=== PATIENT | male | born 1940 | race Hispanic/Latino ===

== ENCOUNTER 2019-04-22 09:20 | Day surgery (SDC) | payer OTHER, MEDICARE ==
[~2019-04-22] VITALS: Ht 181.6 cm; Wt 78.9 kg
[~2019-04-22 09:20] MED LIST: SODIUM CHLORIDE 0.9% 1000ML 1,000 ML IV ONE
[2019-04-22 10:18] VITALS: BP 151/77
[2019-04-22] MEDS ORDERED: PROPOFOL 10 MG/ML 20ML VIAL IV ONE (11:49)
[2019-04-22 12:09] VITALS: BP 93/51
[2019-04-22 12:13] VITALS: BP 101/60
[2019-04-22 12:18] VITALS: BP 101/66
[2019-04-22 12:23] VITALS: BP 104/60
== END 2019-04-22 12:37 | disposition home or self-care (01) ==
LOC: DAH 09:20 → ENDO 09:20
PROVIDERS: ATTEND Internal Medicine
DX: C15.5 Malignant neoplasm of lower third of esophagus (principal); K31.89 Other diseases of stomach and duodenum; K29.70 Gastritis, unspecified, without bleeding; I10 Essential (primary) hypertension; D64.9 Anemia, unspecified; B96.81 Helicobacter pylori [H. pylori] as the cause of diseases classified elsewhere; Z79.899 Other long term (current) drug therapy; Z98.890 Other specified postprocedural states
CPT/HCPCS: 43239; 88305; 93005; A4606; J2704; J7030

== ENCOUNTER 2019-05-14 06:59 | Day surgery (SDC) | payer OTHER, MEDICARE ==
[~2019-05-14] VITALS: Ht 181.6 cm; Wt 79.8 kg
[2019-05-14 08:19] LABS: BASOPHILS % (AUTO) 0.5 % (0.0-5.0); EOSINOPHILS % (AUTO) 2.7 % (0.0-8.0); HEMATOCRIT 33.7 % (42-54); LYMPHOCYTES % (AUTO) 17.3 % (21.0-51.0); MEAN CORPUSCULAR HEMOGLOBIN 31.9 pg (27.0-33.0); MEAN CORPUSCULAR HGB CONC 33.4 g/dL (32.0-36.0); MEAN CORPUSCULAR VOLUME 95.6 fL (79-99); MONOCYTES % (AUTO) 10.8 % (3.0-13.0); NEUTROPHILS % (AUTO) 68.7 % (40.0-77.0); PLATELET COUNT (AUTO) 168 K/uL (130-400); RED BLOOD CELL COUNT(AUTO) 3.52 MIL/uL (4.50-6.20); RED CELL DISTRIBUTION WIDTH 16.9 % (11.0-15.5); WHITE BLOOD COUNT (AUTO) 4.5 K/uL (4.8-10.8)
[2019-05-14 08:31] VITALS: BP 126/76
[2019-05-14] MEDS ORDERED: AMLO-104 PO (08:44)
[2019-05-14] MEDS ORDERED: PROPOFOL 10 MG/ML 20ML VIAL IV ONE (10:09)
[2019-05-14 10:14] VITALS: BP 96/54
[2019-05-14 10:20] VITALS: BP 97/55
[2019-05-14 10:25] VITALS: BP 100/82
[2019-05-14 10:37] VITALS: BP 112/74
== END 2019-05-14 10:40 | disposition home or self-care (01) ==
LOC: ENDO 06:59 → DAH 06:59 → ENDO 10:40
PROVIDERS: ATTEND Internal Medicine Gastroenterology
DX: K62.1 Rectal polyp (principal); K57.30 Diverticulosis of large intestine without perforation or abscess without bleeding; D64.9 Anemia, unspecified; Z86.010 Personal history of colon polyps; I10 Essential (primary) hypertension; F17.210 Nicotine dependence, cigarettes, uncomplicated; C78.89 Secondary malignant neoplasm of other digestive organs; Z98.890 Other specified postprocedural states
CPT/HCPCS: 36415; 45380; 45385; 85025; 88305; A4606; J2704; J7030